=== PATIENT | female | born 1980 | race Asian ===

== ENCOUNTER 2017-02-21 02:16 | Emergency (ER) | payer OTHER ==
--- NOTE | 2017-02-21 02:51 | ED Physician Documentation ---
History of Present Illness - Stated complaint Stated Complaint: ABD PX,16 WKS PREG - Chief complaint Chief Complaint: Abd Pain - Additonal information Additional information: hx from pt 36 one prior 1st trimester miscarriage 16 weeks GA uncomplicated preg so far had pelvic cramping tonight no trauma no vag bleed or leaking fluid sx have subsided somewhat now OB at [facility] Dr Vogt Review of Systems Constitutional: denies: Fever, Chills Cardiac: denies: Chest pain / pressure Respiratory: denies: Dyspnea GI: reports: Abdominal Pain : reports: Now EGA (16 weeks EGA). 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6 C Heart Rate 103 H Respiratory 18 Rate Blood Pressure 123/63 O2 Saturation 100 Oxygen O2 Source Room air - Labs Labs: Laboratory Tests 02/21/17 02:24 Urine Color YELLOW Urine Clarity CLEAR Urine pH 6.0 Ur Specific Mcintosh <=1.005 Urine Protein NEGATIVE Urine Glucose (UA) NEGATIVE Urine Ketones NEGATIVE Urine Occult Blood SMALL H Urine Nitrite NEGATIVE Urine Bilirubin NEGATIVE Urine Urobilinogen 0.2 (NORMAL) Ur Leukocyte Esterase NEGATIVE Urine RBC 0-5 Urine WBC 0-3 Ur Squamous Epith Cells FEW Squamous Urine Bacteria Rare Ur Microscopic Review INDICATED Urine Culture Comments NOT INDICATED - Rads (name of study) OB sono Radiology: See rad report (normal, EGA 16+0, + movement and FHR) PD MEDICAL DECISION MAKING - ED course ED course: bedside sono shows + FHR but little movement - will get official sono Departure - Departure Disposition: Home, Self Care Clinical Impression: Second trimester Condition: Good Follow-Up: [facility] [Provider Group] Comments: The ultrasound was fine - a live baby with heart rate and movement was seen and no abnormalities were noted by the radiologist The urine sample did not indicate and infection Since your symptoms have resolved and you your ultrasound was reassuring, i think it is fine for you to go home Rest and drink plenty of fluids. Follow up with your OB at [facility] before the weekend Return if worse Forms: Activity restrictions
[2017-02-21 02:54] LABS: BILIRUBIN,URINE NEGATIVE (NEGATIVE)
[2017-02-21 02:56] LABS: UA w/ MICROSCOPIC CHARGE YES
[2017-02-21 03:00] LABS: UR CULTURE IF IND NOT INDICATED; WBC,URINE 0-3 /HPF (0-5)
--- NOTE | 2017-02-21 04:03 | Ultrasound Preliminary Report ---
Exam: US OB 14+ Weeks IMPRESSION: 1. Hendricks live intrauterine with gestational age 16 weeks 0 days based on established ED D. 2. Ultrasound measurements are concordant with established gestational age. 3. No abnormality seen. [facility] SITE ID: [id number]
--- NOTE | 2017-02-21 04:06 | Ultrasound Report ---
EXAM: LIMITED OBSTETRICAL ULTRASOUND EXAM DATE: 02/21/2017 03:48 AM. CLINICAL HISTORY: Pain, cramps, no bleeding. COMPARISON: None. TECHNIQUE: Real-time sonographic evaluation of the fetus performed by the boat camp operator. Multiple repre sentative static images were saved for review. DATING: Established EGA 16 weeks 0 days with JOSEY 08/08/2017. GENERAL EVALUATION Hendricks . Cardiac activity: 164 bpm. movement: Visualized. Presentation: Cephalic. Placenta: Posterior position. Amniotic fluid: Normal. VANESSA 14.8 cm. MVP 4.3 cm. GROWTH BPD 3.4 cm, 16 weeks 4 days HC 12.2 cm, 16 weeks 1 day AC 9.7 cm, 15 weeks 5 days FL 1.8 cm, 15 weeks 3 days AUA 16 weeks 0 days EFW 131 g MATERNAL STRUCTURES Cervix measures 2.9 cm on transabdominal images. IMPRESSION: 1. Hendricks live intrauterine with gestational age 16 weeks 0 days based on established ED D. 2. Ultrasound measurements are concordant with established gestational age. 3. No abnormality seen. [facility] Referring Provider Line: [phone] SITE ID: [id number]
[2017-02-21 04:16] VITALS: BP 112/70
== END 2017-02-21 04:16 | disposition home or self-care (01) ==
LOC: ED 02:16
DX: O26.892 Other specified pregnancy related conditions, second trimester (principal); R10.9 Unspecified abdominal pain; Z3A.16 16 weeks gestation of pregnancy
CPT/HCPCS: 76805; 81001; 81003; 87086; 99283

== ENCOUNTER 2018-01-27 02:01 | Emergency (ER) | payer OTHER ==
--- NOTE | 2018-01-27 02:22 | ED Physician Documentation ---
History of Present Illness - Stated complaint Stated Complaint: SOA,COUGH - Chief complaint Chief Complaint: General - History obtained from History obtained from: Patient - Additonal information Additional information: The patient is a 37-year-old female who complains of cough that has been ongoing for the past month, with chest discomfort with coughing during the past 2 weeks. She denies sputum production or fever. She was seen in the clinic at the [facility] 2 weeks ago and had a chest x-ray which was normal. She was diagnosed with viral respiratory infection, and was prescribed albuterol inhaler. She was seen in follow-up in the clinic 1 week ago and was advised that the cough can last for several weeks following an upper respiratory infection. She tells me that when living in [place] she would get a prescription for Zithromax when she presented with similar symptoms. Additionally she complains of sores on her arms. The sores have occurred over the past 2 days, and she saw a mosquito stinging her at 1 of the sites. 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 She has no prior personal history of MRSA. Review of Systems Constitutional: denies: Fever Nose: denies: Congestion Throat: denies: Sore throat Cardiac: reports: Chest pain / pressure (With coughing.) Respiratory: reports: Cough. 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 - Present Medications Home Medications: Ambulatory Orders Medication Instructions Recorded Confirmed Albuterol 1 puffs INH PRN PRN 01/27/18 01/27/18 Benzonatate [Tessalon Perle] 100 mg PO BID PRN #10 capsule 01/27/18 Codeine Phosphate/Guaifenesin 5 ml PO PRN PRN 01/27/18 01/27/18 [Guaifen-Codeine 100-10 mg/5 ml] - Allergies Allergies/Adverse Reactions: Allergies Allergy/AdvReac Type Severity Reaction Status Date / Time No Known Drug Allergies Allergy Verified 01/27/18 02:08 - Social History Does the pt smoke?: No Smoking Status: Never smoker Does the pt drink ETOH?: No Does the pt have substance abuse?: No - Immunizations Immunizations are current?: Yes PD ED PE NORMAL - Vitals Vital signs reviewed: Yes (Normal) - General General: Alert and oriented X 3, Well developed/nourished - HEENT HEENT: Atraumatic, Moist mucous membranes - Neck Neck: No adenopathy, No JVD - Cardiac Cardiac: RRR, No murmur - Respiratory Respiratory: No respiratory distress, Clear bilaterally - Abdomen Abdomen: Soft, Non tender - Back Back: No CVA TTP - Derm Derm: Other (Small welts are noted on both upper extremities, consistent with mosquito bites. 2 of them have been scratched, exhibiting small superficial abrasions. There is no evidence of abscess, and no lymphangitic streaking.) - Extremities Extremities: No edema, No calf tenderness / cord - Neuro Neuro: Alert and oriented X 3, Normal speech Results - Vitals Vitals: Vital Signs - 24 hr 01/27/18 01/27/18 02:05 02:29 Temperature 36.7 C Heart Rate 75 70 Respiratory 18 16 Rate Blood Pressure 148/92 H 129/78 O2 Saturation 95 99 Oxygen O2 Source Room air PD MEDICAL DECISION MAKING - ED course Complexity details: considered differential, d/w patient ED course: The patient's cough is most likely residual from a recent viral upper respiratory infection. Her presentation does not suggest pneumonia, congestive heart failure, and I doubt pulmonary embolus. The sites on her arms appear most consistent with mosquito bites. These appear to be localized reactions, with no evidence of infection. I discussed with her the diagnosis, supporting her primary physician's advice that antibiotics are not clinically indicated for viral upper respiratory infection. She is being discharged with prescription for Tessalon Perles. I discussed with her potentially worrisome signs or symptoms that should prompt reevaluation in the emergency department. - Sepsis Event Vital Signs: Vital Signs - 24 hr 01/27/18 01/27/18 02:05 02:29 Temperature 36.7 C Heart Rate 75 70 Respiratory 18 16 Rate Blood Pressure 148/92 H 129/78 O2 Saturation 95 99 Oxygen O2 Source Room air Departure - Departure Disposition: 01 Home, Self Care Clinical Impression: Viral URI with cough Insect bites Qualifiers: Encounter type: initial encounter Qualified Code(s): W57.XXXA - Bitten or stung by nonvenomous insect and other nonvenomous arthropods, initial encounter Condition: Stable Instructions: ED URI Viral, ED Bite Insect Follow-Up: KAMERON SOLOMON [Primary Care Provider] - Prescriptions: Benzonatate [Tessalon Perle] 100 mg PO BID PRN #10 capsule PRN Reason: Cough Comments: You can use Tessalon as prescribed if needed for cough. He can apply calamine lotion to the insect bites to help reduce itching. You can use Benadryl if needed for itching. Follow up with your primary physician within 2 weeks. Follow-up sooner or return to the emergency department, if you develop increasing difficulty breathing, or increasing redness or swelling around the sites of the insect bites, or otherwise worsening symptoms. Discharge Date/Time: 01/27/18 02:29
[2018-01-27 02:30] VITALS: BP 129/78
== END 2018-01-27 02:29 | disposition home or self-care (01) ==
LOC: ED 02:01
DX: J06.9 Acute upper respiratory infection, unspecified (principal); W57.XXXA Bitten or stung by nonvenomous insect and other nonvenomous arthropods, initial encounter
CPT/HCPCS: 99283

== ENCOUNTER 2018-02-16 23:33 | Emergency (ER) | payer OTHER ==
--- NOTE | 2018-02-17 00:54 | XRAY Report ---
Procedure Date: 02/17/2018 Accession Number: [id number] / [id number] Procedure: XR - Chest 2 View X-Ray CPT Code: 46395 FULL RESULT: EXAM: CHEST RADIOGRAPHY EXAM DATE: 02/17/2018 12:49 AM. CLINICAL HISTORY: Persistent cough. COMPARISON: None. TECHNIQUE: 2 views. FINDINGS: Lungs/Pleura: No focal opacities evident. No pleural effusion. No pneumothorax. Normal volumes. Mediastinum: Heart and mediastinal contours are unremarkable. Other: None. IMPRESSION: Normal 2-view chest radiography. [facility]
--- NOTE | 2018-02-17 01:00 | ED Physician Documentation ---
PD HPI URI - Stated complaint Stated Complaint: COUGH,CHEST PAIN - Chief complaint Chief Complaint: Resp - History obtained from History obtained from: Patient - History of Present Illness Timing - onset: Chronic Timing details: Gradual onset, Intermittant Associated symptoms: Dry cough. No: Fever, Chills Similar symptoms before: Work up / diagnostics, Treatment Recently seen: Clinic, Emergency Dept - Additional information Additional information: Patient is a 37 year old female who is presenting to the emergency department for a two month history of cough. Patient has seen her primary care provider and the emergency department for theses symptoms. Patient recently had breathing tests done and stated she was not asthmatic and did not need to be on nebulizer treatments. Patient was told it could possibly be mold and she should get checked for that. Patient is presenting to the emergency department requesting x-ray or ct and tests for mold. Upon initial evaluation in the emergency department patient was well appearing and in no distress. no active coughing was appreciated. 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 - Present Medications Home Medications: Ambulatory Orders Medication Instructions Recorded Confirmed Albuterol 1 puffs INH PRN PRN 01/27/18 01/27/18 Benzonatate [Tessalon Perle] 100 mg PO BID PRN #10 capsule 01/27/18 Codeine Phosphate/Guaifenesin 5 ml PO PRN PRN 01/27/18 01/27/18 [Guaifen-Codeine 100-10 mg/5 ml] - Allergies Allergies/Adverse Reactions: Allergies Allergy/AdvReac Type Severity Reaction Status Date / Time No Known Drug Allergies Allergy Verified 01/27/18 02:08 - Social History Does the pt smoke?: No Smoking Status: Never smoker Does the pt drink ETOH?: No Does the pt have substance abuse?: No - Immunizations Immunizations are current?: Yes PD ED PE NORMAL - Vitals Vital signs reviewed: Yes - General General: Alert and oriented X 3, No acute distress - HEENT HEENT: Atraumatic - Cardiac Cardiac: RRR, No murmur - Respiratory Respiratory: No respiratory distress - Abdomen Abdomen: Soft, Non tender, Non distended - Derm Derm: Normal color, Warm and dry - Extremities Extremities: No deformity - Neuro Neuro: Alert and oriented X 3, No motor deficit, Normal speech Eye Opening: Spontaneous - Psych Psych: Normal mood Results - Vitals Vitals: Vital Signs - 24 hr 02/16/18 23:43 Temperature 36.8 C Heart Rate 83 Respiratory 16 Rate Blood Pressure 137/77 H O2 Saturation 99 Oxygen O2 Source Room air - Rads (name of study) chest x-ray Radiology: Final report received (normal) PD MEDICAL DECISION MAKING - ED course Complexity details: reviewed old records, reviewed results, re-evaluated patient , considered differential, d/w patient ED course: Patient was seen and examined at bedside. Patient was well appearing and in no distress. patient was sent for imaging and when she returned there were no acute abnormalities. Patient's sputum was sent for culture. Patient required no further inpatient work up and was stable for discharge with outpatient follow up. - Sepsis Event Vital Signs: Vital Signs - 24 hr 02/16/18 23:43 Temperature 36.8 C Heart Rate 83 Respiratory 16 Rate Blood Pressure 137/77 H O2 Saturation 99 Oxygen O2 Source Room air Departure - Departure Disposition: 01 Home, Self Care Clinical Impression: Viral URI with cough Condition: Good Instructions: ED URI Viral Comments: Your diagnostics today were within normal limits. there were no acute abnormalities appreciated. you cultures have been sent and if there are any abnormalities you will be contacted. Otherwise you should follow up with your physician for further evaluation and care.
[2018-02-17 01:22] VITALS: BP 126/88
== END 2018-02-17 01:22 | disposition home or self-care (01) ==
LOC: ED 23:33
DX: J06.9 Acute upper respiratory infection, unspecified (principal)
CPT/HCPCS: 71046; 87070; 87205; 99282; 99283

== ENCOUNTER 2018-02-27 00:27 | Emergency (ER) | payer OTHER ==
[2018-02-27 01:12] LABS: BASOPHILS # (AUTO) 0.1 10^3/uL (0.0-0.1); BASOPHILS % (AUTO) 0.7 %; EOSINOPHILS # (AUTO) 0.2 10^3/uL (0.0-0.7); EOSINOPHILS % (AUTO) 2.6 %; HGB - HEMOGLOBIN 14.1 g/dL (12.0-16.0); LYMPHOCYTES % (AUTO) 26.5 %; MEAN CORPUSCULAR HEMOGLOBIN 29.9 pg (27.0-31.0); MEAN CORPUSCULAR HGB CONC 33.7 g/dL (32.0-36.0); MEAN CORPUSCULAR VOLUME 88.8 fL (81.0-99.0); MEAN PLATELET VOLUME 8.8 fL (7.9-10.8); MONOCYTES # (AUTO) 0.5 10^3/uL (0.0-1.0); MONOCYTES % (AUTO) 6.1 %; NEUTROPHILS # (AUTO) 4.8 10^3/uL (1.5-6.6); NEUTROPHILS % (AUTO) 64.1 %; PLT - PLATELET COUNT 231 10^3/uL (130-450); RED BLOOD COUNT 4.71 10^6/uL (4.20-5.40); RED CELL DISTRIBUTION WIDTH 12.8 % (12.0-15.0); WHITE BLOOD COUNT 7.5 x10^3/uL (4.8-10.8)
[2018-02-27 01:37] LABS: ALBUMIN 3.9 g/dL (3.2-5.5); ALBUMIN/GLOBULIN RATIO 1.2 (1.0-2.2); BILIRUBIN,TOTAL 0.3 mg/dL (0.2-1.0); CALCIUM 8.7 mg/dL (8.5-10.3); CREATININE 0.7 mg/dL (0.4-1.0); TOTAL PROTEIN 7.1 g/dL (6.7-8.2)
--- NOTE | 2018-02-27 02:33 | ED Physician Documentation ---
History of Present Illness - Stated complaint Stated Complaint: DIZZINESS,SOA - Chief complaint Chief Complaint: Cardiac - History obtained from History obtained from: Patient - History of Present Illness Timing: Today - Additonal information Additional information: Patient is a 37 year old female with no significant past medical history who is presenting to the emergency department for intermittent dizziness and shortness of breath. Patient states that her symptoms normally occur when she is working out or bending over. patient had recently been evaluated for a chronic cough and an echocardiogram was ordered for her. patient was told to come to the emergency department if she had worsening symptoms. Upon initial evaluation in the emergency department patient patient was well appearing in no distress. 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 : None HEENT: None Psych: Anxiety Musculoskeletal: None Derm: None - Past Surgical History 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, 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 - Present Medications Home Medications: Ambulatory Orders Medication Instructions Recorded Confirmed Albuterol 1 puffs INH PRN PRN 01/27/18 01/27/18 Benzonatate [Tessalon Perle] 100 mg PO BID PRN #10 capsule 01/27/18 Codeine Phosphate/Guaifenesin 5 ml PO PRN PRN 01/27/18 01/27/18 [Guaifen-Codeine 100-10 mg/5 ml] - Allergies Allergies/Adverse Reactions: Allergies Allergy/AdvReac Type Severity Reaction Status Date / Time No Known Drug Allergies Allergy Verified 02/27/18 00:40 - Social History Does the pt smoke?: No Smoking Status: Never smoker Does the pt drink ETOH?: Yes Does the pt have substance abuse?: No - Immunizations Immunizations are current?: Yes - POLST Patient has POLST: No PD ED PE NORMAL - Vitals Vital signs reviewed: Yes - General General: Alert and oriented X 3, No acute distress, Well developed/nourished - HEENT HEENT: Atraumatic, PERRL, Moist mucous membranes - Neck Neck: Supple, no meningeal sign - Cardiac Cardiac: RRR, No murmur - Respiratory Respiratory: No respiratory distress, Clear bilaterally - Abdomen Abdomen: Soft, Non tender, Non distended - Derm Derm: Normal color, Warm and dry - Extremities Extremities: No deformity, No edema, No calf tenderness / cord - Neuro Neuro: Alert and oriented X 3, 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, No motor deficit, Normal speech Eye Opening: Spontaneous Motor: Obeys Commands Verbal: Oriented GCS Score: 15 - Psych Psych: Normal mood Results - Vitals Vitals: Vital Signs - 24 hr 02/27/18 00:35 Temperature 36.8 C Heart Rate 73 Respiratory 17 Rate Blood Pressure 136/88 H O2 Saturation 98 Oxygen O2 Source Room air - EKG (time done) 0051 Rate: Rate (enter#) (69) Rhythm: NSR [place]: Normal Intervals: Normal OK QRS: Normal Ischemia: Normal ST segments - Labs Labs: Laboratory Tests 02/27/18 02/27/18 02/27/18 01:00 01:00 01:00 WBC 7.5 RBC 4.71 Hgb 14.1 Hct 41.8 MCV 88.8 MCH 29.9 MCHC 33.7 RDW 12.8 Plt Count 231 MPV 8.8 Neut # (Auto) 4.8 Lymph # (Auto) 2.0 [place] # (Auto) 0.5 Eos # (Auto) 0.2 Baso # (Auto) 0.1 Absolute Nucleated RBC 0.00 Nucleated RBC % 0.0 Sodium 138 Potassium 3.3 L Chloride 105 Carbon Dioxide 24 Anion Gap 9.0 BUN 15 Creatinine 0.7 Estimated GFR (MDRD) 94 Glucose 129 H Calcium 8.7 Total Bilirubin 0.3 AST 15 ALT 14 Alkaline Phosphatase 55 Troponin I < 0.04 B-Natriuretic Peptide Total Protein 7.1 Albumin 3.9 Globulin 3.2 Albumin/Globulin Ratio 1.2 Lipase 38 02/27/18 01:00 WBC RBC Hgb Hct MCV MCH MCHC RDW Plt Count MPV Neut # (Auto) Lymph # (Auto) [place] # (Auto) Eos # (Auto) Baso # (Auto) Absolute Nucleated RBC Nucleated RBC % Sodium Potassium Chloride Carbon Dioxide Anion Gap BUN Creatinine Estimated GFR (MDRD) Glucose Calcium Total Bilirubin AST ALT Alkaline Phosphatase Troponin I B-Natriuretic Peptide 34 Total Protein Albumin Globulin Albumin/Globulin Ratio Lipase PD MEDICAL DECISION MAKING - ED course Complexity details: reviewed old records, reviewed results, re-evaluated patient , considered differential, d/w patient ED course: Patient was seen and examined at bedside. patient was well appearing in no distress. ekg was performed and was normal sinus. labs were drawn and also were within normal limits. Patient had already recently had outpatient chest ct which was normal. Patient had outpatient echocardiogram scheduled. patient required no further inpatient work up and was stable for discharge with outpatient follow up. - Sepsis Event Vital Signs: Vital Signs - 24 hr 02/27/18 00:35 Temperature 36.8 C Heart Rate 73 Respiratory 17 Rate Blood Pressure 136/88 H O2 Saturation 98 Oxygen O2 Source Room air Departure - Departure Disposition: Home, Self Care Clinical Impression: Dizziness Condition: Good Instructions: ED Dizziness [facility]O Follow-Up: KAMERON SOLOMON [Primary Care Provider] - As Needed Comments: Your diagnostics today were within normal limits. there is no significant abnormalities. You should stay well hydrated before training and exercise. You should follow up with your doctor and get the echocardiogram as planned. You may return to the emergency department at any time as needed for new, worsening or uncontrollable symptoms.
[2018-02-27 02:48] VITALS: BP 114/71
== END 2018-02-27 02:49 | disposition home or self-care (01) ==
LOC: ED 00:27
DX: R42 Dizziness and giddiness (principal)
CPT/HCPCS: 36415; 80053; 83690; 83880; 84484; 85025; 93005; 99282; 99283

== ENCOUNTER 2018-08-18 14:31 | Emergency (ER) | payer OTHER ==
[2018-08-18 15:01] VITALS: BP 129/84
[2018-08-18] MEDS ORDERED: ACYCLOVIR 200 MG CAPSULE PO STA (16:31)
--- NOTE | 2018-08-18 16:34 | ED Physician Documentation ---
PD HPI SKIN - Stated complaint Stated Complaint: RASH/SIDE TENDERNESS - Chief complaint Chief Complaint: Wound - History obtained from History obtained from: Patient - History of Present Illness Timing - onset: How many days ago (2) Timing - duration: Days (2) Timing - details: Still present Location: Chest (right side) Quality / character: Painful Similar symptoms before: Has not had sx before - Additional information Additional information: The patient is a 38-year-old female who presents with a painful rash on her right chest wall. Her symptoms started yesterday and a become worse today. She denies any fever, cough, shortness of breath. She denies history of similar symptoms in the past. She has had chickenpox in the past. 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: None : None HEENT: None Psych: Anxiety Musculoskeletal: None Derm: None - Past Surgical History Past Surgical History: Yes /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: section, 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 - Present Medications Home Medications: Ambulatory Orders Medication Instructions Recorded Confirmed Albuterol 1 puffs INH PRN PRN 01/27/18 01/27/18 Benzonatate [Tessalon Perle] 100 mg PO BID PRN #10 capsule 01/27/18 Codeine Phosphate/Guaifenesin 5 ml PO PRN PRN 01/27/18 01/27/18 [Guaifen-Codeine 100-10 mg/5 ml] Acyclovir 200 mg PO 5XD #50 capsule 08/18/18 Hydrocodone/Acetaminophen 1 each PO Q6H PRN #14 tablet 08/18/18 [Hydrocodon-Acetaminophen 5-325] - Allergies Allergies/Adverse Reactions: Allergies Allergy/AdvReac Type Severity Reaction Status Date / Time No Known Drug Allergies Allergy Verified 08/18/18 15:00 - Social History Does the pt smoke?: No Smoking Status: Never smoker Does the pt drink ETOH?: Yes Does the pt have substance abuse?: No - Immunizations Immunizations are current?: Yes - POLST Patient has POLST: No PD ED PE NORMAL - Vitals Vital signs reviewed: Yes (normal) - General General: Alert and oriented X 3, Well developed/nourished - HEENT HEENT: Atraumatic, Pharynx benign - Neck Neck: No adenopathy - Cardiac Cardiac: RRR - Respiratory Respiratory: No respiratory distress, Clear bilaterally - Abdomen Abdomen: Soft, Non tender - Derm Derm: Other (There are small vesicles and papules distributed in a dermatomal pattern around the right half of the chest wall. The skin is tender to palpation.) - Extremities Extremities: No edema, No calf tenderness / cord - Neuro Neuro: Alert and oriented X 3, No motor deficit, No sensory deficit Results - Vitals Vitals: Oxygen O2 Source Room air PD MEDICAL DECISION MAKING - ED course Complexity details: considered differential, d/w patient ED course: The patient's presentation is most consistent with shingles. Clinical evidence of cellulitis. Treatment in the emergency department included administration of acyclovir 200 mg orally. She is being discharged with prescriptions for acyclovir and for Vicodin, 14 tablets. I discussed with her the expected course of illness, antiviral treatment and outpatient follow-up, as well as potentially worrisome signs or symptoms that should prompt reevaluation is needed emergency department. Departure - Departure Disposition: 01 Home, Self Care Clinical Impression: Shingles Qualifiers: Herpes zoster complications: without complications Qualified Code(s): B02.9 - Zoster without complications Condition: Stable Instructions: ED Shingles [facility]] Prescriptions: Acyclovir 200 mg PO 5XD #50 capsule Hydrocodone/Acetaminophen [Hydrocodon-Acetaminophen 5-325] 1 each PO Q6H PRN #14 tablet PRN Reason: pain Comments: Take acyclovir 5 times daily as prescribed. You can use ibuprofen, up to 800 mg 3 times daily for its anti-inflammatory effect. You can use Vicodin as prescribed if needed for pain. Avoid contact with women, or immunocompromised people, such as those on immunosuppressive suppressive therapy for organ transplant, those with AIDS, and those on chemotherapy drugs for cancer. Follow-up with your primary physician within 2 weeks. Call to schedule appointment. Return to the emergency department if you develop shortness of breath, secondary skin infection, or otherwise worsening symptoms. Discharge Date/Time: 08/18/18 16:58
== END 2018-08-18 16:58 | disposition home or self-care (01) ==
LOC: ED 14:31
DX: B02.9 Zoster without complications (principal); L03.313 Cellulitis of chest wall
CPT/HCPCS: 99283; A9270